=== PATIENT | female | born 1985 | race Caucasian/White ===

== ENCOUNTER 2017-06-26 15:04 | Outpatient (CLI) | payer OTHER ==
[2017-06-26 17:45] LABS: ADD UMIC YES; UR ASCORBIC ACID NEGATIVE (NEGATIVE); UR BILIRUBIN (Dip) NEGATIVE (NEGATIVE); UR BLOOD (Dip) NEGATIVE (NEGATIVE); UR CLARITY SLIGHTLY CLOUDY (CLEAR); UR COLOR YELLOW (YELLOW); UR GLUCOSE (Dip) NEGATIVE (NEGATIVE); UR KETONES (Dip) 2+ mg/dL (NEGATIVE); UR LEUKOCYTE ESTERASE (Dip) 1+ Leu/ul (NEGATIVE); UR MUCUS FEW /HPF (NONE SEEN); UR NITRITE (Dip) NEGATIVE (NEGATIVE); UR RBC 1 /HPF (0-5); UR SPECIFIC GRAVITY (Dip) 1.016 (1.003-1.030); UR SQUAMOUS EPITHELIAL CELL FEW /HPF (FEW); UR TOTAL PROTEIN (Dip) NEGATIVE (NEGATIVE); UR UROBILINOGEN (Dip) NEGATIVE (NEGATIVE); UR WBC 1 /HPF (0-5)
== END 2017-06-26 18:50 | disposition home or self-care (01) ==
LOC: OBT 15:04 → L-D 15:07 → OBT 18:50
DX: O62.9 Abnormality of forces of labor, unspecified (principal); Z3A.35 35 weeks gestation of pregnancy
CPT/HCPCS: 81001

== ENCOUNTER 2017-07-01 09:34 | Outpatient (CLI) | payer OTHER | END 2017-07-01 12:45 | disposition home or self-care (01) | LOC: OBT 09:34 → L-D 09:34 → OBT 12:45 | DX: O62.9 Abnormality of forces of labor, unspecified (principal); Z3A.35 35 weeks gestation of pregnancy | CPT/HCPCS: 76815; 76818 ==

== ENCOUNTER 2017-07-07 12:56 | Inpatient (IN) | payer OTHER ==
[2017-07-07 14:00] LABS: ADD MAN DIFF? NO
[2017-07-07 14:04] LABS: WHITE BLOOD COUNT 9.1 10^3/ul (4.8-10.8)
[2017-07-07 14:04] LABS: BASOPHILS % 0.2 % (0.0-2.0); EOSINOPHILS # 0.1 10^3/ul (0.0-0.5); EOSINOPHILS % 0.9 % (0.0-7.0); HEMATOCRIT 35.6 % (37.0-47.0); HEMOGLOBIN 12.1 g/dl (12.0-16.0); LYMPHOCYTES # 1.7 10^3/ul (0.8-2.9); LYMPHOCYTES % 19.1 % (15.0-51.0); MEAN CORPUSCULAR HEMOGLOBIN 29.6 pg (29.0-33.0); MEAN PLATELET VOLUME 10.1 fl (7.4-10.4); MONOCYTE # 0.7 10^3/ul (0.3-0.9); MONOCYTES % 7.7 % (0.0-11.0); NEUTROPHIL # 6.5 10^3/ul (1.6-7.5); NEUTROPHILS % 71.7 % (39.0-77.0); PLATELET COUNT 231 10^3/UL (140-415); RED BLOOD COUNT 4.09 10^6/ul (4.20-5.40); RED CELL DISTRIBUTION WIDTH 14.5 % (11.5-14.5)
[2017-07-07] MEDS: ACETAMINOPHEN 325 MG TAB PO (14:06)
[2017-07-07 14:18] LABS: ADD UMIC YES; UR AMORPHOUS CRYSTAL FEW /HPF (NONE SEEN); UR ASCORBIC ACID NEGATIVE (NEGATIVE); UR BACTERIA FEW /HPF (NONE SEEN); UR BILIRUBIN (Dip) NEGATIVE (NEGATIVE); UR BLOOD (Dip) NEGATIVE (NEGATIVE); UR CLARITY CLOUDY (CLEAR); UR COLOR YELLOW (YELLOW); UR GLUCOSE (Dip) NEGATIVE (NEGATIVE); UR KETONES (Dip) NEGATIVE (NEGATIVE); UR LEUKOCYTE ESTERASE (Dip) 3+ Leu/ul (NEGATIVE); UR NITRITE (Dip) NEGATIVE (NEGATIVE); UR NONSQUAMOUS EPITHELIAL CELL 1 /HPF (NONE SEEN); UR RBC 23 /HPF (0-5); UR SQUAMOUS EPITHELIAL CELL MANY /HPF (FEW); UR TOTAL PROTEIN (Dip) NEGATIVE (NEGATIVE); UR UROBILINOGEN (Dip) NEGATIVE (NEGATIVE); UR WBC 137 /HPF (0-5)
[2017-07-07 14:24] LABS: INR 0.98; PROTIME 13.1 Sec (11.9-14.9)
[2017-07-07 14:25] LABS: PARTIAL THROMBOPLASTIN TIME 30.1 Sec (25.0-35.0)
[2017-07-07 14:26] LABS: ALANINE AMINOTRANSFERASE 21 IU/L (13-69); ALBUMIN 3.6 g/dl (3.3-4.9); ALBUMIN/GLOBULIN RATIO 0.97; ALKALINE PHOSPHATASE 148 IU/L (42-121); ANION GAP 16 (8-16); ASPARTATE AMINO TRANSFERASE 20 IU/L (15-46); BILIRUBIN,INDIRECT 0.2 mg/dl (0-1.1); BILIRUBIN,TOTAL 0.2 mg/dl (0.2-1.3); BLOOD UREA NITROGEN 6 mg/dl (7-20); CALCIUM 8.9 mg/dl (8.4-10.2); CARBON DIOXIDE 21 mmol/L (21-31); CHLORIDE 105 mmol/L (97-110); CREATININE 0.52 mg/dl (0.44-1.00); GLUCOSE 93 mg/dl (70-220); POTASSIUM 3.8 mmol/L (3.5-5.1); SODIUM 138 mmol/L (135-144); TOTAL PROTEIN 7.3 g/dl (6.1-8.1); URIC ACID 3.7 mg/dl (3.1-7.9)
[2017-07-07] MEDS: LACTATED RINGER'S 1,000 ML IV (18:42)
[2017-07-07] MEDS: AMOXICILLIN 500 MG CAP PO (21:46)
[2017-07-08] MEDS: LACTATED RINGER'S 1,000 ML IV ×2 (02:24→10:25)
[2017-07-08] MEDS: AMOXICILLIN 500 MG CAP PO (11:23)
== END 2017-07-08 13:50 | disposition home or self-care (01) | DRG 780 ==
LOC: OBT 12:56 → L-D 12:57 → OBT 17:35 → L-D 17:35
DX: O47.03 False labor before 37 completed weeks of gestation, third trimester (principal); R51 Headache; Z3A.35 35 weeks gestation of pregnancy
CPT/HCPCS: 76818; 80053; 81001; 84560; 85025; 85384; 85610; 85730

== ENCOUNTER 2017-07-20 16:07 | Outpatient (CLI) | payer OTHER | END 2017-07-20 21:27 | disposition home or self-care (01) | LOC: OBT 16:07 → L-D 16:08 → OBT 21:27 | DX: O62.9 Abnormality of forces of labor, unspecified (principal); Z3A.38 38 weeks gestation of pregnancy | CPT/HCPCS: 76818 ==

== ENCOUNTER 2017-07-23 19:09 | Inpatient (IN) | payer OTHER ==
[2017-07-23] MEDS ORDERED: METHYLERGONOVINE 0.2 MG INJ IM (19:30)
[2017-07-23] MEDS ORDERED: BUTORPHANOL 2 MG INJ IV (19:30)
[2017-07-23] MEDS: LACTATED RINGER'S 1,000 ML IV (19:30)
[2017-07-23] MEDS ORDERED: LIDOCAINE 1% (MPF) 30 ML INJ INJ (19:30)
[2017-07-23] MEDS ORDERED: CARBOPROST 250 MCG INJ IM (19:30)
[2017-07-23] MEDS ORDERED: OXYTOCIN 30 UNITS/LR 500 ML IV (19:30)
[2017-07-23] MEDS ORDERED: MISOPROSTOL 200 MCG TAB PR (19:30)
[2017-07-23 19:47] LABS: ADD MAN DIFF? NO
[2017-07-23 19:49] LABS: BASOPHILS % 0.2 % (0.0-2.0); EOSINOPHILS # 0.1 10^3/ul (0.0-0.5); EOSINOPHILS % 0.7 % (0.0-7.0); HEMATOCRIT 39.4 % (37.0-47.0); LYMPHOCYTES # 2.1 10^3/ul (0.8-2.9); LYMPHOCYTES % 24.2 % (15.0-51.0); MEAN CORPUSCULAR HEMOGLOBIN 28.7 pg (29.0-33.0); MEAN PLATELET VOLUME 10.1 fl (7.4-10.4); MONOCYTE # 0.6 10^3/ul (0.3-0.9); MONOCYTES % 7.1 % (0.0-11.0); NEUTROPHIL # 5.9 10^3/ul (1.6-7.5); NEUTROPHILS % 67.3 % (39.0-77.0); PLATELET COUNT 229 10^3/UL (140-415); RED BLOOD COUNT 4.53 10^6/ul (4.20-5.40); RED CELL DISTRIBUTION WIDTH 14.6 % (11.5-14.5)
[2017-07-23 19:49] LABS: WHITE BLOOD COUNT 8.7 10^3/ul (4.8-10.8)
[2017-07-23 20:05] LABS: INR 0.94; PROTIME 12.7 Sec (11.9-14.9)
[2017-07-23 20:06] LABS: PARTIAL THROMBOPLASTIN TIME 28.5 Sec (25.0-35.0)
[2017-07-23] MEDS: OXYTOCIN 30 UNITS/LR 500 ML IV ×2 (20:26→20:38)
[2017-07-23] MEDS: IBUPROFEN 600 MG TAB PO (20:38)
[2017-07-23 22:04] LABS: HEPATITIS B SURFACE ANTIGEN NEGATIVE (NEGATIVE)
[2017-07-24] MEDS ORDERED: METHYLERGONOVINE 0.2 MG INJ IM
[2017-07-24] MEDS ORDERED: DIBUCAINE 1% 30 GM OINT PR
[2017-07-24] MEDS ORDERED: ACETAMINOPHEN 325 MG TAB PO
[2017-07-24] MEDS ORDERED: MISOPROSTOL 200 MCG TAB PR
[2017-07-24] MEDS ORDERED: CARBOPROST 250 MCG INJ IM
[2017-07-24] MEDS ORDERED: HYDROCODONE/APAP (5/325) TAB PO
[2017-07-24] MEDS ORDERED: BENZOCAINE 20% 56 ML SPRAY TOP
[2017-07-24] MEDS: OXYTOCIN 30 UNITS/LR 500 ML IV (02:23)
[2017-07-24] MEDS: WITCH HAZEL/GLYCERIN PAD PR (02:24)
[2017-07-24] MEDS: LANOLIN 7 GM TUBE TOP (02:24)
[2017-07-24] MEDS: IBUPROFEN 600 MG TAB PO ×5 (02:30→23:58)
[2017-07-24 08:30] LABS: ADD MAN DIFF? NO
[2017-07-24] MEDS: LACTATED RINGER'S 1,000 ML IV* (08:34)
[2017-07-24 08:35] LABS: WHITE BLOOD COUNT 10.9 10^3/ul (4.8-10.8)
[2017-07-24 08:35] LABS: BASOPHILS % 0.2 % (0.0-2.0); EOSINOPHILS # 0.1 10^3/ul (0.0-0.5); EOSINOPHILS % 0.5 % (0.0-7.0); HEMATOCRIT 36.7 % (37.0-47.0); HEMOGLOBIN 12.2 g/dl (12.0-16.0); LYMPHOCYTES # 1.8 10^3/ul (0.8-2.9); LYMPHOCYTES % 16.8 % (15.0-51.0); MEAN CORPUSCULAR HEMOGLOBIN 28.8 pg (29.0-33.0); MEAN CORPUSCULAR HGB CONC 33.2 g/dl (32.0-37.0); MEAN CORPUSCULAR VOLUME 86.8 fl (82.0-101.0); MEAN PLATELET VOLUME 10.6 fl (7.4-10.4); MONOCYTE # 0.9 10^3/ul (0.3-0.9); MONOCYTES % 8.1 % (0.0-11.0); NEUTROPHIL # 8.1 10^3/ul (1.6-7.5); NEUTROPHILS % 74.1 % (39.0-77.0); PLATELET COUNT 189 10^3/UL (140-415); RED BLOOD COUNT 4.23 10^6/ul (4.20-5.40); RED CELL DISTRIBUTION WIDTH 14.6 % (11.5-14.5)
[2017-07-24] MEDS: SENNA/DOCUSATE NA (8.6MG/50MG) TAB PO ×2 (08:58→20:38)
[2017-07-24] MEDS: INFLUENZA VIRUS VACCINE 0.5 ML SYG IM* (13:03)
[2017-07-24 14:28] LABS: RAPID PLASMA REAGIN NONREACTIVE (NR)
[2017-07-25] MEDS: IBUPROFEN 600 MG TAB PO ×2 (05:42→12:44)
[2017-07-25] MEDS: DIPHTH/TET/ACEL PERTUSS (ADULT) 0.5 ML VIAL IM* (09:00)
[2017-07-25] MEDS: SENNA/DOCUSATE NA (8.6MG/50MG) TAB PO (10:13)
== END 2017-07-25 14:00 | disposition home or self-care (01) | DRG 775 ==
LOC: OBT 19:09 → L-D 19:10 → OBT 19:11 → L-D 19:11 → PP1 23:34
PROVIDERS: Obstetrics & Gynecology
PROC: 10E0XZZ Delivery of Products of Conception, External Approach (ICD-10-PCS; principal; 2017-07-23)
PROC: 4A1HXCZ Monitoring of Products of Conception, Cardiac Rate, External Approach (ICD-10-PCS; 2017-07-23)
PROC: 3E0234Z Introduction of Serum, Toxoid and Vaccine into Muscle, Percutaneous Approach (ICD-10-PCS; 2017-07-24)
DX: O80 Encounter for full-term uncomplicated delivery (principal); Z23 Encounter for immunization; Z37.0 Single live birth; Z3A.39 39 weeks gestation of pregnancy
CPT/HCPCS: 85025; 85610; 85730; 86592; 86885; 86900; 86901; 87340; 90686; 90715; 99464

== ENCOUNTER 2018-05-09 08:33 | Day surgery (SDC) | payer OTHER ==
[~2018-05-09 08:33] MED LIST: CEFAZOLIN 2 GM/50 ML (PMX) 50 ML IVPB; SUCCINYLCHOLINE CHLORIDE 100 MG/5 ML SYG IV
[2018-05-09 10:27] LABS: ADD MAN DIFF? NO
[2018-05-09 11:09] LABS: BASOPHILS % 0.5 % (0.0-2.0); EOSINOPHILS # 0.1 10^3/ul (0.0-0.5); EOSINOPHILS % 1.4 % (0.0-7.0); HEMATOCRIT 39.9 % (37.0-47.0); HEMOGLOBIN 13.2 g/dl (12.0-16.0); LYMPHOCYTES # 2.5 10^3/ul (0.8-2.9); LYMPHOCYTES % 37.5 % (15.0-51.0); MEAN CORPUSCULAR HEMOGLOBIN 29.9 pg (29.0-33.0); MEAN CORPUSCULAR HGB CONC 33.1 g/dl (32.0-37.0); MEAN CORPUSCULAR VOLUME 90.3 fl (82.0-101.0); MEAN PLATELET VOLUME 10.4 fl (7.4-10.4); MONOCYTE # 0.7 10^3/ul (0.3-0.9); MONOCYTES % 10.1 % (0.0-11.0); NEUTROPHIL # 3.3 10^3/ul (1.6-7.5); NEUTROPHILS % 50.3 % (39.0-77.0); PLATELET COUNT 255 10^3/UL (140-415); RED BLOOD COUNT 4.42 10^6/ul (4.20-5.40); RED CELL DISTRIBUTION WIDTH 12.1 % (11.5-14.5)
[2018-05-09 11:09] LABS: WHITE BLOOD COUNT 6.6 10^3/ul (4.8-10.8)
[2018-05-09] MEDS ORDERED: CEFAZOLIN 1 GM INJ (11:13)
[2018-05-09] MEDS ORDERED: NEOSTIGMINE 3 MG/3 ML SYRINGE (11:13)
[2018-05-09] MEDS ORDERED: GLYCOPYRROLATE 0.4 MG INJ (11:13)
[2018-05-09] MEDS ORDERED: PROPOFOL 20 ML (11:13)
[2018-05-09] MEDS ORDERED: ROCURONIUM 50 MG INJ (11:13)
[2018-05-09] MEDS ORDERED: ONDANSETRON 4 MG INJ (11:17)
[2018-05-09] MEDS ORDERED: MIDAZOLAM 1 MG/ML 2 ML INJ (11:17)
[2018-05-09] MEDS ORDERED: DEXAMETHASONE 4 MG/ML 1 ML INJ (11:17)
[2018-05-09] MEDS ORDERED: FENTAnyl 50 MCG/ML VIAL (11:17)
[2018-05-09] MEDS ORDERED: IPRATROPIUM (NEB) 0.5 MG/2.5 ML AMP HHN (11:30)
[2018-05-09] MEDS ORDERED: HYDROmorphONE 1 MG/5 ML IV SYRINGE IV (11:30)
[2018-05-09] MEDS ORDERED: OXYCODONE/ACETAMINOPHEN (5/325) TAB PO ×2 (11:30)
[2018-05-09] MEDS ORDERED: EPHEDrine SULFATE 50 MG/5 ML SYG IV (11:30)
[2018-05-09] MEDS ORDERED: MIDAZOLAM 1 MG/ML 2 ML INJ IV (11:30)
[2018-05-09] MEDS ORDERED: LABETALOL HCL 20MG INJ IV (11:30)
[2018-05-09] MEDS ORDERED: FENTAnyl 50 MCG/ML VIAL IV ×3 (11:30)
[2018-05-09] MEDS ORDERED: TRIMETHOBENZAMIDE 100 MG/ML VIAL IM (11:30)
[2018-05-09] MEDS ORDERED: ALBUTEROL 0.083% (NEB) 2.5 MG/3 ML AMP HHN (11:30)
[2018-05-09] MEDS ORDERED: hydrALAzine 20 MG INJ IV (11:30)
[2018-05-09] MEDS ORDERED: DIPHENHYDRAMINE 50 MG INJ IV (11:30)
[2018-05-09] MEDS ORDERED: KETOROLAC 30 MG INJ (11:47)
[2018-05-09] MEDS: BUPIVACAINE 0.5%/EPI (SDV) 30 ML INJ (12:19)
[2018-05-09] MEDS ORDERED: KETOROLAC 30 MG INJ IV (13:00)
[2018-05-09] MEDS ORDERED: morphine 2 MG INJ IV (13:00)
[2018-05-09] MEDS ORDERED: HYDROCODONE/APAP (5/325) TAB PO ×2 (13:00)
[2018-05-09] MEDS ORDERED: ONDANSETRON 4 MG INJ IV (13:00)
[2018-05-09] MEDS: HYDROmorphONE 1 MG/5 ML IV SYRINGE IV ×2 (13:01→13:06)
[2018-05-09] MEDS: ONDANSETRON 4 MG INJ IV (13:01)
[2018-05-09] MEDS: MEPERIDINE 25 MG INJ IV (13:11)
== END 2018-05-09 14:50 | disposition home or self-care (01) ==
LOC: SDS 08:33
DX: N97.9 Female infertility, unspecified (principal); Z90.79 Acquired absence of other genital organ(s); Z90.721 Acquired absence of ovaries, unilateral
CPT/HCPCS: 58600; 85025; 86850; 86900; 86901; 88302